=== PATIENT | female | born 1990 | race Caucasian/White ===

== ENCOUNTER 2019-01-21 10:45 | Emergency (ER) | payer MEDICAID ==
[2019-01-21 12:27] LABS: ADD MAN DIFF? NO
[2019-01-21 12:28] LABS: WHITE BLOOD COUNT 10.2 10^3/ul (4.8-10.8)
[2019-01-21 12:28] LABS: BASOPHIL # 0.1 10^3/ul (0.0-0.1); BASOPHILS % 0.5 % (0.0-2.0); EOSINOPHILS # 0.1 10^3/ul (0.0-0.5); EOSINOPHILS % 1.4 % (0.0-7.0); HEMATOCRIT 38.2 % (37.0-47.0); HEMOGLOBIN 12.6 g/dl (12.0-16.0); LYMPHOCYTES % 29.7 % (15.0-51.0); MEAN CORPUSCULAR VOLUME 93.9 fl (82.0-101.0); MEAN PLATELET VOLUME 10.5 fl (7.4-10.4); MONOCYTE # 0.7 10^3/ul (0.3-0.9); MONOCYTES % 7.2 % (0.0-11.0); NEUTROPHIL # 6.2 10^3/ul (1.6-7.5); NEUTROPHILS % 60.5 % (39.0-77.0); PLATELET COUNT 249 10^3/UL (140-415); RED BLOOD COUNT 4.07 10^6/ul (4.20-5.40); RED CELL DISTRIBUTION WIDTH 12.5 % (11.5-14.5)
[2019-01-21 13:00] LABS: ADD UMIC YES; UR ASCORBIC ACID NEGATIVE (NEGATIVE); UR BILIRUBIN (Dip) NEGATIVE (NEGATIVE); UR BLOOD (Dip) 3+ mg/dL (NEGATIVE); UR CLARITY SLIGHTLY CLOUDY (CLEAR); UR COLOR YELLOW (YELLOW); UR GLUCOSE (Dip) NEGATIVE (NEGATIVE); UR KETONES (Dip) NEGATIVE (NEGATIVE); UR LEUKOCYTE ESTERASE (Dip) 2+ Leu/ul (NEGATIVE); UR NITRITE (Dip) NEGATIVE (NEGATIVE); UR RBC 5 /HPF (0-5); UR SPECIFIC GRAVITY (Dip) 1.009 (1.003-1.030); UR SQUAMOUS EPITHELIAL CELL FEW /HPF (FEW); UR TOTAL PROTEIN (Dip) NEGATIVE (NEGATIVE); UR UROBILINOGEN (Dip) NEGATIVE (NEGATIVE); UR WBC 11 /HPF (0-5)
== END 2019-01-21 16:30 | disposition home or self-care (01) ==
LOC: FTE 10:45
DX: O20.9 Hemorrhage in early pregnancy, unspecified (principal); R10.2 Pelvic and perineal pain; Z3A.00 Weeks of gestation of pregnancy not specified
CPT/HCPCS: 36415; 76801; 76817; 81001; 84702; 85025; 86900; 86901; 99284-25

== ENCOUNTER 2019-03-17 10:54 | Emergency (ER) | payer MEDICAID ==
[2019-03-17] MEDS: IBUPROFEN 800 MG TAB PO (13:22)
[2019-03-17] MEDS: ACETAMINOPHEN 325 MG TAB PO (13:22)
== END 2019-03-17 13:58 | disposition home or self-care (01) ==
LOC: FTE 10:54
DX: N93.9 Abnormal uterine and vaginal bleeding, unspecified (principal); O04.80 (Induced) termination of pregnancy with unspecified complications
CPT/HCPCS: 99283; Z7502

== ENCOUNTER 2019-07-28 16:40 | Emergency (ER) | payer MEDICAID ==
[2019-07-28] MEDS: LIDOCAINE/MYLANTA 40 ML BTL PO (17:42)
[2019-07-28] MEDS: RANITIDINE 150 MG TAB PO (17:51)
== END 2019-07-28 18:03 | disposition home or self-care (01) ==
LOC: FTE 16:40
DX: R10.13 Epigastric pain (principal); R19.7 Diarrhea, unspecified
CPT/HCPCS: 99283; Z7502